=== PATIENT | female | born 1980 | race Two or more races ===

== ENCOUNTER 2016-11-15 12:43 | Emergency (ER) | payer OTHER ==
[2016-11-15 12:48] VITALS: BMI 33.0
--- NOTE | 2016-11-15 14:39 | PDOC ---
History of Present Illness - General Chief Complaint: Vaginal Bleeding Stated Complaint: VAGINAL BLEEDING, 9 WKS Time Seen by Provider: 11/15/16 14:01 History Source: Patient Exam Limitations: No Limitations - History of Present Illness Travel History: No Initial Comments: 11/15/16 14:28 36 yo F A2 with no significant PMHx presents with 9 weeks . with one day history of vaginal bleeding . She states that early this morning she noticed bright red vaginal bleeding. Bleeding has continued but now more like clots. US done on 10/26/16 at [facility] showed yolk sac but no fetus was told it was either early or failed . She was also found at that time to have UTI and given 7 day course of unknown abx. She has had two previous first trimester miscarriages in past. No current urinary symptoms. Denies CP,fever, JUAREZ,SOB, N/V. Past History - Travel Traveled outside of the country in the last 30 days: No Close contact w/someone who was outside of country & ill: No - Past Medical History Allergies/Adverse Reactions: Allergies Allergy/AdvReac Type Severity Reaction Status Date / Time No Known Allergies Allergy Verified 11/15/16 12:44 Other medical history: none - Family Disease History Family Disease History: CA: Father (lung), Mother (stomach), Sister (unknown) - Reproductive History LMP comment: 09/10/16 LMP Normal: Yes Is Patient Now?: Yes (#): 5 Para: 2 Cervical CA: No Dysfunctional Uterine Bleeding: No Spontaneous : 2 (first trimester. ) - Psycho/Social/Smoking Cessation Hx Anxiety: No Suicidal Ideation: No Smoking History: Never smoked Have you smoked in the past 12 months: No Information on smoking cessation initiated: No Hx Alcohol Use: No Drug/Substance Use Hx: No Substance Use Type: None Review of Systems - Review of Systems Able to Perform ROS?: Yes Is the patient limited Mongolian proficient: Yes Constitutional: No: Fever HEENTM: No: Symptoms Reported Respiratory: No: Symptoms reported Cardiac (ROS): No: Symptoms Reported ABD/GI: Yes: Nausea Integumentary: No: Symptoms Reported Neurological: No: Symptoms reported Psychiatric: Yes: Anxiety *Physical Exam - Vital Signs Last Vital Signs Temp Pulse Resp BP Pulse Ox 98.0 F 75 18 105/60 100 11/15/16 12:44 11/15/16 12:44 11/15/16 12:44 11/15/16 12:44 11/15/16 12:44 - Physical Exam General Appearance: Yes: Mild Distress HEENT: positive: EOMI, SHANIQUA Neck: positive: Supple Respiratory/Chest: positive: Lungs Clear, Normal Breath Sounds. negative: Respiratory Distress, Accessory Muscle Use Cardiovascular: positive: Regular Rhythm, Regular Rate Vascular Pulses: Dorsalis-Pedis (R): 2+, Doralis-Pedis (L): 2+ Gastrointestinal/Abdominal: positive: Normal Bowel Sounds, Flat, Soft. negative : Pulsatile Mass Musculoskeletal: positive: Normal Inspection Extremity: negative: Swelling, Calf Tenderness Neurologic: positive: Fully Oriented, Alert, Normal Mood/Affect ED Treatment Course - LABORATORY CBC & Chemistry Diagram: 11/15/16 14:32 11/15/16 14:23 - RADIOLOGY Radiograph Interpretation: 11/15/16 17:21 * EXAM#: TYPE/EXAM: RESULT: [id number] US/TRANSVAGINAL US PREG Transvaginal obstetrical ultrasound Clinical information: vaginal bleeding, evaluate for ectopic The study was performed utilizing transvaginal and transabdominal scanning. A single intrauterine gestation is noted with a crown- rump length of 0.5 cm corresponding to an approximate gestational age of 6 weeks. No definite embryonic cardiac activity is identified at this time. A yolk sac is also visualized. Several nabothian cyst are seen. A 1.7 cm right ovarian cyst is noted. The left ovary could not be definitely visualized due to obscuring bowel gas. No free intraperitoneal fluid is seen. Impression: Single intrauterine gestation at approximately 6 weeks. No embryonic cardiac activity is seen. Correlate with serial beta hCG levels and follow-up sonography. 1.7 cm right ovarian cyst. Reported By: Lance Elmore MD 11/15/16 [id number] Medical Decision Making - Medical Decision Making 11/15/16 14:45 36 yo F 9W presents with vaginal bleeding. * Vaginal US * CBC, CMP, Quantitative BHCG 11/15/16 17:17 * Quantitative BHCG- 7624.4 * Rh(-)- Rhogham administered. * US-shows yolk sac consistant with 6w IUP with no heart beat appreciated. * Will need [employer] follow up 11/15/16 17:39 * she had a Rhogam shot done on 10/26/16. I spoke with OB at [facility] Dr. Evans and told no additional Rhogam needed at this time. *DC/Admit/Observation/Transfer Diagnosis at time of Disposition: Threatened - Discharge Dispostion Disposition: HOME Condition at time of disposition: Stable Admit: No - Patient Instructions Printed Discharge Instructions: DI for Threatened Additional Instructions: You have had a threatened . You will need follow up with [facility] [employer] as soon as possible. Please contact [facility] to set up an appointment. #[phone]. please bring all documentation (labs and US report) with you to appointment. No sexual activity and pelvic rest. Please return to ED for worsening symptoms of pain or vaginal discharge.
[2016-11-15 14:46] LABS: EOSINOPHIL 14.6 % (0-4.5); MCH 29.6 pg (25.7-33.7); MEAN CELL VOLUME 87.1 fl (80-96); NEUTROPHILS 53.3 % (42.8-82.8); PLATELET COUNT 202 K/MM3 (134-434); RDW 13.3 % (11.6-15.6); WHITE BLOOD COUNT 8.2 K/mm3 (4.0-10.0)
--- NOTE | 2016-11-15 15:03 | PDOC ---
Attending Attestation - Resident Resident Name: Tom Allen - ED Attending Attestation I have performed the following: I have examined & evaluated the patient, The case was reviewed & discussed with the resident, I agree w/resident's findings & plan, Exceptions are as noted - HPI HPI: 11/15/16 15:02 36-year-old female with first trimester miscarriage 2 in the past presents with LMP 9 weeks ago with vaginal bleeding and cramping. Prior ultrasound did not confirm IUP, this is her first follow-up since that ultrasound 3 weeks ago. - Physicial Exam PE: 11/15/16 15:02 Vital signs stable. Abdomen benign. - Medical Decision Making 11/15/16 15:02 Patient seen and evaluated with the resident. I agree with the overall evaluation, assessment, and management with the following summary of visit: 36-year-old female with first trimester vaginal bleeding. Rule out ectopic is still in the differential, hemodynamically stable. Check labs including beta quantitative Urinalysis Rh Transvaginal ultrasound 11/15/16 15:45 HCG 7624, Rh and Sono pending.
[2016-11-15 15:09] LABS: ALBUMIN 3.7 g/dl (3.4-5.0); ANION GAP 12 (8-16); BILIRUBIN,TOTAL 0.4 mg/dL (0.2-1.0); CALCIUM 8.6 mg/dL (8.5-10.1); CO2 23 mmol/L (21-32); CREATININE 0.6 mg/dL (0.55-1.02); GLUCOSE,RANDOM 99 mg/dL (74-106); SGOT/AST 12 U/L (15-37); SGPT/ALT 23 U/L (12-78); TOT PROT 7.6 g/dl (6.4-8.2)
[2016-11-15 15:25] LABS: ALK PHOS 60 U/L (45-117)
[2016-11-15] MEDS ORDERED: RHO(D) IMMUNE GLOBULIN 1,500 UNIT DISP.SYRIN IM ONE (16:09)
[2016-11-15 17:09] LABS: URINE APPEARANCE CLEAR; URINE BILIRUBIN NEGATIVE (NEGATIVE); URINE BLOOD NEGATIVE (NEGATIVE); URINE COLOR YELLOW; URINE GLUCOSE (UA) NEGATIVE (NEGATIVE); URINE KETONE NEGATIVE (NEGATIVE); URINE NITRITE NEGATIVE (NEGATIVE); URINE PROTEIN NEGATIVE (NEGATIVE); URINE UROBILINOGEN NEGATIVE E.U./dl (0.2-1.0)
[2016-11-15] MEDS ORDERED: IBUPROFEN 600 MG TABLET (FP) PO ONE (17:59)
[2016-11-15 18:11] LABS: URINE LEUK ESTERASE 1+ (NEGATIVE)
[2016-11-15 18:13] VITALS: BP 123/74; PULSE 96; TEMP 98.2
[2016-11-15 18:16] LABS: URINE BACTERIA RARE /hpf (NONE SEEN); URINE MUCUS RARE; URINE RBC 3 /hpf (0-3); URINE WBC 8 /hpf (3-5)
== END 2016-11-15 18:17 | disposition home or self-care (01) ==
LOC: JER 12:43
DX: O20.0 Threatened abortion (principal); Z3A.01 Less than 8 weeks gestation of pregnancy
CPT/HCPCS: 36415; 76817-TC; 80053; 81003; 81015; 84702; 85025; 86850; 86870; 86900; 86901; 86902; 86999; 99282-25

== ENCOUNTER 2017-02-25 15:16 | Emergency (ER) | payer OTHER ==
[2017-02-25 15:33] VITALS: BP 119/78; PULSE 83; TEMP 98.1; BMI 33.7
[2017-02-25] MEDS ORDERED: ACETAMINOPHEN 325 MG TABLET (FP) PO ONE (17:16)
--- NOTE | 2017-02-25 17:18 | PDOC ---
History of Present Illness - General Chief Complaint: Pain Stated Complaint: URINARY PROBLEM/ 8WEEKS , URINARY PAIN Time Seen by Provider: 02/25/17 17:10 History Source: Patient - History of Present Illness Timing/Duration: reports: other (this am) Quality: reports: mild Pain Radiation: reports: no radiation Past History - Past Medical History Allergies/Adverse Reactions: Allergies Allergy/AdvReac Type Severity Reaction Status Date / Time No Known Allergies Allergy Verified 02/25/17 15:32 Home Medications: Ambulatory Orders Nitrofurantoin Monohyd/M-Cryst [Macrobid -] 100 mg PO BID #14 capsule 02/25/17 - Family Disease History Family Disease History: CA: Father (lung), Mother (stomach), Sister (unknown) - Reproductive History (#): 5 Para: 2 Cervical CA: No Dysfunctional Uterine Bleeding: No Spontaneous : 2 (first trimester. ) - Psycho/Social/Smoking Cessation Hx Anxiety: No Suicidal Ideation: No Smoking History: Never smoked Have you smoked in the past 12 months: No Information on smoking cessation initiated: No Hx Alcohol Use: No Drug/Substance Use Hx: No Substance Use Type: None Review of Systems - Review of Systems Constitutional: No: Chills, Fever ABD/GI: No: Nausea, Vomiting : Yes: Dysuria. No: Flank Pain, Hematuria *Physical Exam - Vital Signs Last Vital Signs Temp Pulse Resp BP Pulse Ox 98.1 F 83 18 119/78 100 02/25/17 15:31 02/25/17 15:31 02/25/17 15:31 02/25/17 15:31 02/25/17 15:31 - Physical Exam General Appearance: Yes: Appropriately Dressed. No: Apparent Distress HEENT: positive: Normal Voice Neck: positive: Supple Respiratory/Chest: negative: Respiratory Distress Gastrointestinal/Abdominal: positive: Normal Bowel Sounds, Soft. negative: Tender, Distended, Guarding, Rebound Musculoskeletal: negative: CVA Tenderness Extremity: positive: Normal Inspection Integumentary: positive: Dry, Warm Neurologic: positive: Fully Oriented, Alert, Normal Mood/Affect ED Treatment Course - LABORATORY CBC & Chemistry Diagram: 02/25/17 17:33 02/25/17 18:09 - RADIOLOGY Radiology Studies Ordered: Category Date Time Status TRANSVAGINAL US PREG [US] Stat Ultrasound 02/25/17 17:15 Ordered Medical Decision Making - Medical Decision Making 02/25/17 17:16 37 yo F, (3 miscarriage including 3 months ago), no care as of yet, here with lower abdominal comfort and dysuria since this a.m. No hematuria , vaginal bleeding, nausea, vomiting, fever or chills See exam 1st trimester w/ abd pain and dysuria R/o uti No e/o pyelo at this time -pain control -labs -US 02/25/17 17:18 *DC/Admit/Observation/Transfer Diagnosis at time of Disposition: Threatened , UTI (urinary tract infection) - Discharge Dispostion Disposition: HOME Condition at time of disposition: Stable - Prescriptions Prescriptions: Nitrofurantoin Monohyd/M-Cryst [Macrobid -] 100 mg PO BID #14 capsule - Referrals Referrals: Lanie Sheffield MD [Staff Physician] - - Patient Instructions Printed Discharge Instructions: Urinary Tract Infection, DI for Threatened Additional Instructions: Your preliminary Transvaginal ultrasound shows: A single viable intrauterine gestation at approximately 7 weeks and 5 days. A 1.6 x 0.8 cm hypoechoic focus is seen abutting the gestational sac probable representation of subchorionic implantation bleed as discussed with you prior to your discharge. It is important that you follow up with your stars analytical lead or the one listed on your discharge sheet. You need a follow-up ultrasound this week. Your beta HC.0 Due to your UTI symptoms, you will be treated with Macrobid 100mg Take 1 tablet twice a day for 7 days
[2017-02-25] MEDS ORDERED: ACETAMINOPHEN 325 MG TABLET (FP) ONE (17:27)
[2017-02-25 17:56] LABS: BASOPHIL 0.4 % (0-2.0); EOSINOPHIL 0.6 % (0-4.5); MCH 29.3 pg (25.7-33.7); MCHC 33.5 g/dl (32.0-36.0); MEAN CELL VOLUME 87.5 fl (80-96); MEAN PLT VOLUME 9.8 fl (7.5-11.1); NEUTROPHILS 71.8 % (42.8-82.8); PLATELET COUNT 184 K/MM3 (134-434); RDW 12.4 % (11.6-15.6); WHITE BLOOD COUNT 10.1 K/mm3 (4.0-10.0)
[2017-02-25 18:00] LABS: URINE APPEARANCE CLEAR; URINE BILIRUBIN NEGATIVE (NEGATIVE); URINE BLOOD NEGATIVE (NEGATIVE); URINE COLOR YELLOW; URINE GLUCOSE (UA) NEGATIVE (NEGATIVE); URINE KETONE TRACE (NEGATIVE); URINE LEUK ESTERASE TRACE (NEGATIVE); URINE NITRITE NEGATIVE (NEGATIVE); URINE PROTEIN NEGATIVE (NEGATIVE); URINE UROBILINOGEN NEGATIVE mg/dL (0.2-1.0)
[2017-02-25 18:37] LABS: URINE BACTERIA RARE /hpf (NONE SEEN); URINE MUCUS FEW; URINE RBC 1 /hpf (0-3); URINE WBC 5 /hpf (3-5)
[2017-02-25 18:57] LABS: ALBUMIN 3.5 g/dl (3.4-5.0); ANION GAP 9 (8-16); CALCIUM 8.7 mg/dL (8.5-10.1); CO2 24 mmol/L (21-32); CREATININE 0.7 mg/dL (0.55-1.02); GLUCOSE,RANDOM 87 mg/dL (74-106); SGOT/AST 10 U/L (15-37); SGPT/ALT 24 U/L (12-78)
[2017-02-25 18:59] LABS: ALK PHOS 65 U/L (45-117); BILIRUBIN,TOTAL 0.1 mg/dL (0.2-1.0); TOT PROT 7.6 g/dl (6.4-8.2)
--- NOTE | 2017-02-25 20:11 | PDOC ---
*Physical Exam - Vital Signs Last Vital Signs Temp Pulse Resp BP Pulse Ox 98.1 F 83 18 119/78 100 02/25/17 15:31 02/25/17 15:31 02/25/17 15:31 02/25/17 15:31 02/25/17 15:31 ED Treatment Course - LABORATORY CBC & Chemistry Diagram: 02/25/17 17:33 02/25/17 18:09 - ADDITIONAL ORDERS Additional order review: Laboratory Results 02/25/17 02/25/17 02/25/17 18:09 17:33 17:33 Sodium 139 Potassium 3.5 Chloride 106 Carbon Dioxide 24 Anion Gap 9 BUN 14 Creatinine 0.7 Creat Clearance w eGFR > 60 Random Glucose 87 Calcium 8.7 Total Bilirubin 0.1 L D AST 10 L ALT 24 Alkaline Phosphatase 65 Total Protein 7.6 Albumin 3.5 Beta HCG, Quant 00690.0 Urine Color Yellow Urine Appearance Clear Urine pH 5.0 Urine Protein Negative Urine Glucose (UA) Negative Urine Ketones Trace H Urine Blood Negative Urine Nitrite Negative Urine Bilirubin Negative Urine Urobilinogen Negative Ur Leukocyte Esterase Trace Urine RBC 1 Urine WBC 5 Ur Epithelial Cells Rare Urine Bacteria Rare Urine Mucus Few 02/25/17 17:33 RBC 3.92 MCV 87.5 MCHC 33.5 RDW 12.4 MPV 9.8 Neutrophils % 71.8 D Lymphocytes % 21.7 Monocytes % 5.5 Eosinophils % 0.6 D Basophils % 0.4 D - Medications Given in the ED: ED Medications Discontinued Medications Generic Name Dose Route Start Last Admin Trade Name Freq PRN Reason Stop Dose Admin Acetaminophen 650 mg 02/25/17 17:16 02/25/17 17:30 Tylenol - PO 02/25/17 17:17 650 mg ONCE ONE Administration Progress Note - Progress Note Progress Note: Transvaginal ultrasound preliminary impression: Single viable intrauterine gestation at approximately 7 weeks and 5 days. A 1.6 x 0.8 cm hypo-necrotic focus is seen abutting the gestational sac palpable representing a subchorionic implantation bleed. Correlation with follow-up sonogram suggested. 2.7 cm right ovarian cysts. Left ovary cannot be definitely identified. No Doppler evidence of right ovarian torsion. *DC/Admit/Observation/Transfer Diagnosis at time of Disposition: Threatened Urinary tract infection Qualifiers: Urinary tract infection type: acute cystitis Hematuria presence: without hematuria Qualified Code(s): N30.00 - Acute cystitis without hematuria - Discharge Dispostion Disposition: HOME Condition at time of disposition: Stable Admit: No - Prescriptions Prescriptions: Nitrofurantoin Monohyd/M-Cryst [Macrobid -] 100 mg PO BID #14 capsule - Referrals Referrals: Lanie Sheffield MD [Staff Physician] - - Patient Instructions Printed Discharge Instructions: DI for Threatened , Urinary Tract Infection Additional Instructions: Your preliminary Transvaginal ultrasound shows: A single viable intrauterine gestation at approximately 7 weeks and 5 days. A 1.6 x 0.8 cm hypoechoic focus is seen abutting the gestational sac probable representation of subchorionic implantation bleed as discussed with you prior to your discharge. It is important that you follow up with your shuttle fixer or the one listed on your discharge sheet. You need a follow-up ultrasound this week. Your beta HC.0 Due to your UTI symptoms, you will be treated with Macrobid 100mg Take 1 tablet twice a day for 7 days
[2017-02-25] MEDS ORDERED: NITROFURANTOIN MACROCRYSTAL 50 MG CAPSULE (FP) PO SCH (20:30)
--- NOTE | 2017-02-28 17:48 | PDOC ---
Patient Follow-up (Call Back) - Post ED Follow - Up Condition at time of discharge: Stable Disposition at time of original discharge: HOME Reason for Call Back: Abnwl. Microbiology (Patient with positive urine culture on Macrobid susceptible, appropriate treatment)
== END 2017-02-25 20:44 | disposition home or self-care (01) ==
LOC: JER 15:16
DX: O26.891 Other specified pregnancy related conditions, first trimester (principal); Z3A.08 8 weeks gestation of pregnancy; O20.0 Threatened abortion; N39.0 Urinary tract infection, site not specified
CPT/HCPCS: 36415; 76817-TC; 80053; 81003; 81015; 84702; 85025; 87086; 87186; 99282-25

== ENCOUNTER 2017-04-01 03:12 | Emergency (ER) | payer OTHER ==
--- NOTE | 2017-04-01 03:23 | PDOC ---
History of Present Illness - General Stated Complaint: PAIN,LT SHOULDER Time Seen by Provider: 04/01/17 03:18 History Source: Patient Exam Limitations: No Limitations - History of Present Illness Initial Comments: 04/01/17 03:27 37-year-old female who is left-hand dominant presents to the emergency department complaining of left shoulder pain 4 days. 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 Pain is exacerbated on movement and touch and alleviated minimally at rest. Patient's and taking Tylenol at home with minimal relief. Patient denies any injury or fall. Patient denies headaches, dizziness, lightheadedness, neck pains , back pains, chest pain, shortness of breath, abdominal pains, extremity numbness or tingling sensation. Patient states she is currently . LMP 12/31/2016 Occurred: reports: other (x4d) Upper Extremity Pain Location: left: shoulder Method of Injury: reports: other (constant use) Extremity Pain Location - Extremity Pain Location Extremity Pain Locations: left: other (left shoulder) Past History - Travel Traveled outside of the country in the last 30 days: No Close contact w/someone who was outside of country & ill: No - Past Medical History Allergies/Adverse Reactions: Allergies Allergy/AdvReac Type Severity Reaction Status Date / Time No Known Allergies Allergy Verified 02/25/17 15:32 Home Medications: Ambulatory Orders Nitrofurantoin Monohyd/M-Cryst [Macrobid -] 100 mg PO BID #14 capsule 02/25/17 - Family Disease History Family Disease History: CA: Father (lung), Mother (stomach), Sister (unknown) - Reproductive History (#): 5 Para: 2 Cervical CA: No Dysfunctional Uterine Bleeding: No Spontaneous : 2 (first trimester. ) - Psycho/Social/Smoking Cessation Hx Anxiety: No Suicidal Ideation: No Smoking History: Never smoked Have you smoked in the past 12 months: No Hx Alcohol Use: No Drug/Substance Use Hx: No Substance Use Type: None Review of Systems - Review of Systems Able to Perform ROS?: Yes Is the patient limited Sami proficient: No Cardiac (ROS): No: Chest Pain Musculoskeletal: Yes: Joint Stiffness (left shoulder) *Physical Exam - Physical Exam Comments: 04/01/17 03:22 GENERAL: Well developed, well nourished. Awake and alert. No acute distress. HEENT: Normocephalic, atraumatic. PERRLA, EOMI. No conjunctival pallor. Sclera are non- icteric. Moist mucous membranes. Oropharynx is clear. NECK: Supple. Full ROM. No JVD. Carotid pulses 2+ and symmetric, without bruits. No thyromegaly. No lymphadenopathy. CARDIOVASCULAR: Regular rate and rhythm. No murmurs, rubs, or gallops. Distal pulses are 2+ and symmetric. PULMONARY: No evidence of respiratory distress. Lungs clear to auscultation bilaterally. No wheezing, rales or rhonchi. MUSCULOSKELETAL Left shoulder decreased R.O.M./ +pain on palp and passive movement +biceps and triceps intact Normal range of motion at all joints excluding left shoulder. No bony deformities or tenderness. No CVA tenderness. EXTREMITIES: No cyanosis. No clubbing. No edema. No calf tenderness. SKIN: Warm and dry. Normal capillary refill. No rashes. No jaundice. *DC/Admit/Observation/Transfer Diagnosis at time of Disposition: Left shoulder pain Qualifiers: Chronicity: acute Qualified Code(s): M25.512 - Pain in left shoulder - Discharge Dispostion Disposition: HOME Condition at time of disposition: Stable Admit: No - Referrals Referrals: Abdirizak Jones MD [Staff Physician] - - Patient Instructions Printed Discharge Instructions: DI for Shoulder Pain Additional Instructions: Attempt to move you are shoulder Take Tylenol every 4-6 hours/sparingly for the pain As discussed, we are unable to x-ray your shoulder due to your nor are we able to give you a narcotic. It is very important that you follow-up with the orthopedic surgeon/Dr. Jones Return back to the emergency department for severe/persistent or worsening symptoms
--- NOTE | 2017-04-01 03:35 | PDOC ---
Medical Decision Making - Medical Decision Making 04/01/17 03:35 agree with care from EVAN Aparicio *DC/Admit/Observation/Transfer Diagnosis at time of Disposition: Left shoulder pain - Discharge Dispostion Disposition: HOME Condition at time of disposition: Stable - Referrals Referrals: Abdirizak Jones MD [Staff Physician] - - Patient Instructions Printed Discharge Instructions: DI for Shoulder Pain Additional Instructions: Attempt to move you are shoulder Take Tylenol every 4-6 hours/sparingly for the pain As discussed, we are unable to x-ray your shoulder due to your nor are we able to give you a narcotic. It is very important that you follow-up with the orthopedic surgeon/Dr. Jones Return back to the emergency department for severe/persistent or worsening symptoms
[2017-04-01 03:57] VITALS: BP 109/74; PULSE 89; TEMP 98.1; BMI 33.9
== END 2017-04-01 04:26 | disposition home or self-care (01) ==
LOC: JER 03:12
DX: M25.512 Pain in left shoulder (principal); X50.0XXA Overexertion from strenuous movement or load, initial encounter; X50.9XXA Other and unspecified overexertion or strenuous movements or postures, initial encounter; Y93.E9 Activity, other interior property and clothing maintenance; Y92.89 Other specified places as the place of occurrence of the external cause; Y99.0 Civilian activity done for income or pay
CPT/HCPCS: 99281-25; 99282-25

== ENCOUNTER 2017-09-29 07:35 | Inpatient (IN) | payer OTHER ==
[2017-09-29] MEDS ORDERED: DEXTROSE 5%-LACTATED RINGERS 1,000 ML IV SCH (09:45)
[2017-09-29 10:13] VITALS: BMI 35.2
[2017-09-29 10:16] LABS: BASO % 0.3 % (0-2.0); EOS % 0.8 % (0-4.5); HEMATOCRIT 31.7 % (32.4-45.2); HEMOGLOBIN 10.9 GM/dL (10.7-15.3); LYMPH % 16.9 % (8-40); MCH 29.5 pg (25.7-33.7); MCHC 34.3 g/dl (32.0-36.0); MONO % 5.7 % (3.8-10.2); NEUT % 76.3 % (42.8-82.8); PLATELET COUNT 156 K/MM3 (134-434); RBC 3.68 M/mm3 (3.60-5.2); RDW 13.9 % (11.6-15.6); WHITE BLOOD COUNT 10.5 K/mm3 (4.0-10.0)
[2017-09-29] MEDS ORDERED: OXYTOCIN 30 UNITS in 0.9% NS 30 UNIT/500 ML INFUS.BAG IVPB ONE (10:21)
--- NOTE | 2017-09-29 10:23 | PN ---
Ante-Partal Exam - Subjective Vital Signs: Vital Signs Temperature 98.4 F 09/29/17 07:52 Pulse Rate 69 09/29/17 07:52 Respiratory Rate 20 09/29/17 07:52 Blood Pressure 113/33 09/29/17 07:52 O2 Sat by Pulse Oximetry (%)
[2017-09-29 10:28] LABS: ANION GAP 11 (8-16); BLOOD UREA NITROGEN 10 mg/dL (7-18); CALCIUM 8.8 mg/dL (8.5-10.1); CHLORIDE 105 mmol/L (98-107); CO2 22 mmol/L (21-32); CREATININE 0.5 mg/dL (0.55-1.02); GLUCOSE,RANDOM 87 mg/dL (74-106); POTASSIUM 3.7 mmol/L (3.5-5.1); SODIUM 138 mmol/L (136-145)
[2017-09-29] MEDS ORDERED: ELECTROLYTE-148 SOLN 1,000 ML IV SCH (10:30)
[2017-09-29 10:34] LABS: INR 0.98 (0.82-1.09); PROTHROMBIN TIME (PATIENT) 11.1 SEC (9.98-11.88)
[2017-09-29 10:37] LABS: ACTIVATED PTT 24.8 SECONDS (26.9-34.4)
--- NOTE | 2017-09-29 10:42 | HP ---
Past Medical History - Primary Care Physician PCP:: Annemarie Cannon - Admission Chief Complaint: 37 years ( ama), w/f , 38.6 weeks by sonogram sent from [facility] dept for delivery due to sono on 09/29/17 reported as INES 3.1 cm(oligo),BPP 6 /8( fm-2, bm-2, ft-2, af-0),EFW 5'5" ( <10 %tile growth) possible symmetrical IUGR . Pt also had complain of pain onse since 5.00AM q 30 min . She was evaluated for labor before sonogram, cx was closed, uc q10-15 min, FHR tracing was cat-1 at 7.00AM History of Present Illness: PNC at , [facility] . wt gain 18 lbs panel A neg, Rhogam taken , Hbsag neg, Rpr nr, Hiv neg, Sickle neg , Gbs neg , Quantiferon neg, 1 Hr gtt 119, 02/13/17 pap nilm gc/ct neg She had serial songram done for growth by [facility] . gentic counselling done Nt screen & , Modified sequential was neg , Lo VAN A on NT screen . 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 Weeks Gestation by Dates: 38.4 ...EDC by Dates: 10/09/17 ...EDC by Sono: 10/07/17 (38.6 weeks ) Additional OB History: G1 2002 SP Ab 2nd trimester. G2 02/09/2004 40 wks 3.5 Kg in Aisha. G3 10/08/2007 40 wks 4. kg in Aisha. G4 2015 SP AB 16 weeks. G5 11/22/16 SP AB 1st trimester Heme/Onc: No: Anemia Infectious Disease: Yes: Other (h/o cold & cough for 2 weeks, no meds taken she did not take any ( influenza or tdap )vaccine in the clinic). No: AIDS, STD 's, Tuberculosis Psych: No: Addictions, Anxiety, Bipolar, Depression, Panic, Psychosis, Schizophrenia Endocrine: No: Diabetes Mellitus, Hypothyroidism - Past Surgical History Past Surgical History: Yes: None Hx Myomectomy: No Hx Transabdominal Cerclage: No - Smoking History Smoking history: Never smoked Have you smoked in the past 12 months: No - Alcohol/Substance Use Hx Alcohol Use: No History of Substance Use: reports: None Home Medications - Allergies Allergies/Adverse Reactions: Allergies Allergy/AdvReac Type Severity Reaction Status Date / Time No Known Allergies Allergy Verified 09/15/17 11:46 - Home Medications Home Medications: Ambulatory Orders Vitamins (Sjr) - 1 tab PO DAILY 09/11/17 Physical Exam - Maternity Vital Signs: Vital Signs Temperature 97.3 F L 09/29/17 09:53 Pulse Rate 73 09/29/17 09:53 Respiratory Rate 20 09/29/17 09:53 Blood Pressure 122/71 09/29/17 09:53 O2 Sat by Pulse Oximetry (%) Selected Entries 09/29/17 09:53 Weight 218 lb Constitutional: Yes: Well Nourished, Mild Distress, Obese Eyes: Yes: WNL HENT: Yes: WNL, Nasal Congestion. No: Pharyngeal Erythema Neck: Yes: WNL Cardiovascular: Yes: WNL, Regular Rate and Rhythm Lungs: Clear to auscultation Breast(s): Yes: WNL. No: Mass - Abdominal Exam/OB Fundal Height: 34 (Fundal Ht less than sono size ) Number of Fetuses: Single Presentation: Vertex Contractions: Yes Regularity: Irregular (10-15 min) Intensity: Mild Monitor Mode: External Heart Rate (range): 135 Heart Rate Location: [facility] Category: I Accelerations: Uniform Decelerations: None - Vaginal Exam/OB Vaginal Bleediing: Old Blood (brown discharge) Speculum Exam: No Dilatation (cm): 1-2 cm Effacement (%): 60 Amniotic Membrane Status: Intact Presentation: Vertex/Position (exam at 10.15 AM) Station: -2 - Physical Exam Musculoskeletal: Yes: WNL Extremities: Yes: WNL. No: Calf Tenderness Edema: No Integumentary: Yes: WNL Deep Tendon Reflex Grade: Normal +2 ...Motor Strength: WNL Psychiatric: Yes: WNL, Alert, Oriented - Labs Lab Results: CBC, BMP 09/29/17 09:55 09/29/17 09:55 Problem List - Problems (1) with 38 completed weeks gestation Code(s): Z3A.38 - 38 WEEKS GESTATION OF (2) Oligohydramnios in min in third trimester Code(s): O41.03X0 - OLIGOHYDRAMNIOS, THIRD TRIMESTER, NOT APPLICABLE OR UNSP (4) Obesity (BMI 35.0-39.9 without comorbidity) Code(s): E66.9 - OBESITY, UNSPECIFIED (5) AMA (advanced maternal age) multigravida 35+ Code(s): O09.529 - SUPERVISION OF ELDERLY MULTIGRAVIDA, UNSPECIFIED TRIMESTER Assessment/Plan 37 Yrs , 38.6 weeks, oligohydramnios ( ines 3.1 cm0, Iugr ( , 10 %tile), ? latent labor Gbs neg, A neg Plan Pitocin augmentation trial vaginal delivery
[2017-09-29] MEDS ORDERED: OXYTOCIN 30 UNITS in 0.9% NS 30 UNIT/500 ML INFUS.BAG IVPB SCH (10:45)
--- NOTE | 2017-09-29 12:42 | PN ---
Progress Note, Labor Vaginal Exam #1 Labor Exam Date: 09/29/17 Labor Exam Time: 11:55 Heart Rate (range): 135 Dilatation: 2 Effacement (%): 65 Amniotic Membrane Status: Intact Presentation: Vertex/Position Station: -2 Remarks: uc q 3-4 min fhr cat-1 pitocin in progress Vaginal Exam #2 Labor Exam Date: 09/29/17 Labor Exam Time: 13:50 Heart Rate (range): 140-90 Dilatation: 7-8 Effacement (%): 90 Amniotic Membrane Status: Ruptured (bleeding clot noted) Presentation: Vertex/Position (srom at 13.10 hr) Station: 0 Remarks: fhr cat-2 , early decels noted uc 2-3 min 1.00 Pm epidural was given 13.55 hr fully dilated , vx +2 , pt pushing Selected Entries 09/29/17 13:36 Pulse Rate 78 Blood Pressure 130/56
[2017-09-29] MEDS ORDERED: FENTANYL/BUPIVACAINE/NS/PF - PCEA - 50 ML DISP.SYRIN EP ONE (13:04)
[2017-09-29] MEDS ORDERED: NALOXONE HCL 0.4 MG/ML VIAL IVPUSH PRN (13:33)
[2017-09-29] MEDS ORDERED: FENTANYL/BUPIVACAINE/NS/PF - PCEA - 50 ML DISP.SYRIN EP SCH (13:45)
[2017-09-29] MEDS ORDERED: OXYTOCIN 20 UNITS in 0.9% NS 20 UNIT/1,000 ML INFUS.BAG IV ONE (13:51)
[2017-09-29] MEDS ORDERED: BENZOCAINE 28 GM HEMORRHOIDAL OINTMENT TP PRN (14:22)
[2017-09-29] MEDS ORDERED: METHYLERGONOVINE MALEATE 0.2 MG/1 ML AMP IM PRN (14:22)
[2017-09-29] MEDS ORDERED: oxyCODONE HCL 5 MG TABLET PO PRN (14:22)
[2017-09-29] MEDS ORDERED: BENZOCAINE 20% 57 GM BOTTLE TP PRN (14:22)
[2017-09-29] MEDS ORDERED: BISACODYL 10 MG SUPP.RECT RC PRN (14:22)
[2017-09-29] MEDS ORDERED: WITCH HAZEL 50% (TUCKS) 40 PAD/JAR PAD TP PRN (14:22)
[2017-09-29] MEDS ORDERED: OXYTOCIN 20 UNITS in 0.9% NS 20 UNIT/1,000 ML INFUS.BAG IV SCH (14:30)
--- NOTE | 2017-09-29 14:38 | PN ---
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 intrapartum course uneventful
[2017-09-29 14:52] LABS: ARTERIAL BLD GAS O2 SATURATION 12.8 % (90-98.9); ARTERIAL BLOOD GAS BASE EXCESS -2.8 meq/l (-2-2); ARTERIAL BLOOD GAS PCO2 57.2 mmHg (35-45); ARTERIAL BLOOD GAS PO2 11.6 mmHg (80-100); ARTERIAL BLOOD GAS pH 7.27 (7.35-7.45)
[2017-09-29 15:03] LABS: VENOUS PC02 46.5 mmHg (38-52); VENOUS PH 7.32 (7.32-7.42); VENOUS PO2 23.6 mmHg (28-48)
[2017-09-29] MEDS: FERROUS SO4 325 MG TABLET (FP) PO SCH (17:14)
[2017-09-29] MEDS: IBUPROFEN 600 MG TABLET (FP) PO PRN (21:22)
[2017-09-29] MEDS: ACETAMINOPHEN 325 MG TABLET (FP) PO PRN (21:24)
[2017-09-30] MEDS: ACETAMINOPHEN 325 MG TABLET (FP) PO PRN ×3 (03:51→20:03)
[2017-09-30] MEDS: IBUPROFEN 600 MG TABLET (FP) PO PRN ×2 (03:52→17:20)
--- NOTE | 2017-09-30 07:48 | PN ---
Progress Note (short form) - Note Progress Note: ppd 1 doing well, no excess vaginal bleeding CBC, BMP 09/29/17 09:55 Last Vital Signs Temp Pulse Resp BP Pulse Ox 98 F 67 18 121/71 100 09/30/17 06:00 09/30/17 06:00 09/30/17 06:00 09/30/17 06:00 09/29/17 14:15 andomen soft, uterus firm, non tender lochia mild no calf tenderness plan ambulate, cbc
[2017-09-30 08:14] LABS: BASO % 0.3 % (0-2.0); EOS % 0.8 % (0-4.5); HEMATOCRIT 31.2 % (32.4-45.2); HEMOGLOBIN 10.4 GM/dL (10.7-15.3); LYMPH % 19.8 % (8-40); MCH 29.2 pg (25.7-33.7); MCHC 33.3 g/dl (32.0-36.0); MEAN CELL VOLUME 87.8 fl (80-96); MEAN PLT VOLUME 9.7 fl (7.5-11.1); MONO % 6.5 % (3.8-10.2); NEUT % 72.6 % (42.8-82.8); PLATELET COUNT 148 K/MM3 (134-434); RBC 3.55 M/mm3 (3.60-5.2); RDW 13.7 % (11.6-15.6); WHITE BLOOD COUNT 9.9 K/mm3 (4.0-10.0)
[2017-09-30] MEDS: PRENATAL VITAMINS W/ FOLIC ACID TABLET (FP) PO SCH (09:16)
[2017-09-30] MEDS: FERROUS SO4 325 MG TABLET (FP) PO SCH ×2 (09:17→17:19)
[2017-09-30] MEDS ORDERED: SENNOSIDES/DOCUSATE COMBO (SENNA PLUS) TABLET (UD) PO PRN (22:00)
--- NOTE | 2017-10-01 08:10 | DS ---
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 Vital Signs: Vital Signs Temperature 98.1 F 09/30/17 21:36 Pulse Rate 80 09/30/17 21:36 Respiratory Rate 20 09/30/17 21:36 Blood Pressure 104/61 09/30/17 21:36 O2 Sat by Pulse Oximetry (%) 100 09/29/17 14:15 Constitutional: Yes: Well Nourished Eyes: Yes: WNL HENT: Yes: WNL Neck: Yes: WNL Cardiovascular: Yes: WNL Respiratory: Yes: WNL Gastrointestinal: Yes: WNL ...Rectal Exam: Yes: WNL Renal/: Yes: WNL Pelvis: Yes: WNL External Genitalia: Yes: Normal ....Post : Yes: Uterus firm, Uterus non-tender, Moderate lochia rubra ( perineum intact) Breast(s): Yes: WNL (BF, breasts not engorged) Musculoskeletal: Yes: WNL Extremities: Yes: WNL. No: Calf Tenderness Edema: Yes Edema: LLE: 1+, RLE: 1+ Neurological: Yes: WNL, Alert, Oriented ...Motor Strength: WNL Psychiatric: Yes: WNL Labs: CBC, BMP 09/30/17 06:53 09/29/17 09:55 Delivery - Delivery Vaginal Delivery: No Problems, Spontaneous Type of Anesthesia: Epidural Episiotomy/Laceration: None EBL (cc): 200 Delivery, Single - Stages of Labor Date 1st Stage Initiatied: 09/29/17 Time 1st Stage Initiated: 09:00 Date 2nd Stage Initiated: 09/29/17 Time 2nd Stage Initiated: 13:55 Date of Delivery: 09/29/17 Time of Delivery: 14:04 Time Placenta Delivered: 14:10 Placenta: Yes: Spontaneous, Uterine Exploration - 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 intrapartum course uneventful pp course uneventful discharge 10/01/17 Discharge Summary Reason For Visit: LABOR INDUCTION Current Active Problems AMA (advanced maternal age) multigravida 35+ (Acute) IUGR (intrauterine growth restriction) (Acute) Normal spontaneous vaginal delivery (Acute) Obesity (BMI 35.0-39.9 without comorbidity) (Acute) Oligohydramnios in min in third trimester (Acute) with 38 completed weeks gestation (Acute) Condition: Stable - Instructions Diet, Activity, Other Instructions: Post Instructions DIET: Continue good diet high in protein, calcium, and iron rich foods. Drink at least eight (8) glasses of water daily in addition to other fluids. ___ Regular diet MEDICATIONS: Continue vitamins and iron as previously directed. Motrin and Tylenol may be taken for minor discomfort. ACTIVITY: Mild to moderate exercise may be started in two (2) weeks. Take frequent rest periods. Resume normal activity after six (6) week check up. WOUND CARE OF OPERATIVE SITE: Continue use of perineal bottle until vaginal discharge stops. Keep area clean. Shower daily. Keep abdominal wound dry. Report any drainage or redness to physician. Tub baths, tampons and douches are not permitted for [address] Breast feeding & or Bottle feeding BREAST CARE: (For those that are not breast feeding): If engorgement occurs: Wear tight fitting bra. Take Tylenol or Motrin for pain. Apply cold packs (ice in bags to each breast ) FAMILY PLANNING: There are many control alternatives to pursue and they should be discussed at your first office visit. You may resume sexual activity after your six (6) week check up. (Remember, breast feeding is not a contraceptive) NEXT PHYSICIAN APPOINTMENT: Be certain to call for a six (6) week appointment, unless otherwise directed. Call Clinic or got to Emergency Dept if you have any of the following: Heavy vaginal bleeding Painful urination Leg pain Unusual odor noted to vaginal bleeding High fever Red streaking noted on breast Referrals: Annemarie Cannon MD [Staff Physician] - Disposition: HOME - Home Medications Comprehensive Discharge Medication List: Ambulatory Orders Vitamins (Sjr) - 1 tab PO DAILY 09/11/17 Acetaminophen [Tylenol .Regular Strength -] 650 mg PO Q3H PRN tablet 09/30/17 Ferrous Sulfate [Feosol] 325 mg PO DAILY #60 tab 09/30/17 Ibuprofen [Motrin -] 200 mg PO Q4H PRN tablet 09/30/17 Vitamins (Sjr) - 1 tab PO DAILY #60 tablet 09/30/17
[2017-10-01] MEDS: FERROUS SO4 325 MG TABLET (FP) PO SCH (08:40)
[2017-10-01 09:09] VITALS: BP 131/76; PULSE 71; TEMP 98.3
[2017-10-01] MEDS: PRENATAL VITAMINS W/ FOLIC ACID TABLET (FP) PO SCH (09:17)
[2017-10-01] MEDS: IBUPROFEN 600 MG TABLET (FP) PO PRN (10:51)
[2017-10-01] MEDS: ACETAMINOPHEN 325 MG TABLET (FP) PO PRN (10:51)
--- NOTE | 2017-10-04 14:28 | PATH ---
Surgical Pathology Report Patient Name: SUNDAR MCDOWELL [facility]. Rec. 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 Specimen(s) Received PLACENTA Clinical History 38.6 weeks, IUGR, oligohydramnios Final Diagnosis PLACENTA, DELIVERY: 285 G THIRD TRIMESTER PLACENTA WITH TRIVASCULAR UMBILICAL CORD, FOCAL INTRAPARENCHYMAL INFARCT (~15% OF PLACENTAL SURFACE) AND MILD ACUTE CHORIOAMNIONITIS. Electronically Signed Lizett Purcell M.D. Gross Description The specimen is received fresh labeled placenta and is a 285 gram, 15.5 x 12.0 x 2.3 cm. placenta with attached membranes and umbilical cord. The attached membranes are hoang, translucent and insert marginally. The umbilical cord measures 14 cm. in length and averages 1.1 cm. in diameter. The cord inserts eccentrically, 4 cm. to the nearest margin. No true knots or strictures are identified. Cut surface of the umbilical cord reveals 3 vessels. The surface is gold-blue with minimal fibrin deposition and appropriate caliber vessels. The maternal surface is red-brown with focal defects. Sectioning reveals 2 hoang, firm intraparenchymal lesions measuring 1.0 and 1.5 cm in greatest dimensions. The remaining placental parenchyma is red-brown and spongy. Digital Intern sections are submitted in 5 cassettes as follows: 1-membrane roll and umbilical cord; 2-3-lesions; 4-5-full thickness sections of placenta. /10/03/2017 [facility]10/03/2017
== END 2017-10-01 13:40 | disposition home or self-care (01) | DRG 560 ==
LOC: JDEL 07:35 → JLDR 09:20 → J3W 16:22
PROVIDERS: ADMIT Obstetrics & Gynecology; ATTEND Obstetrics & Gynecology
PROC: 10E0XZZ Delivery of Products of Conception, External Approach (ICD-10-PCS; principal; 2017-09-29)
DX: O41.03X0 Oligohydramnios, third trimester, not applicable or unspecified (principal); O36.5930 Maternal care for other known or suspected poor fetal growth, third trimester, not applicable or unspecified; O99.213 Obesity complicating pregnancy, third trimester; E66.9 Obesity, unspecified; Z68.35 Body mass index [BMI] 35.0-35.9, adult; Z3A.39 39 weeks gestation of pregnancy; Z37.0 Single live birth
CPT/HCPCS: 36415; 36600; 59025; 59409; 80048; 82803; 85025; 85461; 85610; 85730; 86593; 86850; 86900; 86901; 86999; 88307-TC